=== PATIENT | male | born 1990 | race Caucasian/White ===

== ENCOUNTER 2019-11-19 05:04 | Emergency (ER) | payer SELFPAY ==
[2019-11-19] MEDS ORDERED: LORazepam 2 MG/ML SDV ONE (05:35)
[2019-11-19] MEDS ORDERED: LORazepam 2 MG/ML SDV IVPUSH ONE ×2 (05:39→06:00)
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
[2019-11-19] MEDS ORDERED: OLANZapine 10 MG Vial IM ONE (06:13)
[2019-11-19] MEDS ORDERED: Sodium Chloride 0.9% 1,000 ML IV ONE (07:29)
[2019-11-19] MEDS ORDERED: Sodium Chloride 0.9% 1,000 ML IV SCH (07:30)
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
== END 2019-11-19 12:20 | disposition home or self-care (01) ==
LOC: FB.ED 05:04
DX: F15.129 Other stimulant abuse with intoxication, unspecified (principal); F15.159 Other stimulant abuse with stimulant-induced psychotic disorder, unspecified
CPT/HCPCS: 36415; 80053; 80305-QW; 80307; 84443; 85025; 96361; 96374; 99285-25; J2060; J7030

== ENCOUNTER 2019-12-03 03:41 | Emergency (ER) | payer SELFPAY ==
--- NOTE | 2019-12-03 04:39 | EDM.PDOC ---
ED HPI GENERAL MEDICAL PROBLEM - General Chief Complaint: Drug or Alcohol Abuse Stated Complaint: WANTS BLOOD TESTED Time Seen by Provider: 12/03/19 04:34 Source of Information: Reports: Patient History Limitations: Reports: No Limitations - History of Present Illness INITIAL COMMENTS - FREE TEXT/NARRATIVE: Patient is a known IVDA, he injects Methamphetamine regularly. After injecting @ 1800 yesterday, his vision became blurred and felt lightheaded, this resolved after @2 hours. Patient is concerned that the Meth was laced with Fentanyl. He denies headache, chest pain or shortness of breath. Onset Date: 12/02/19 Onset Time: 18:00 Severity: Moderate Generalized Pain Score (Numeric/FACES): 7 - Related Data Allergies Allergy/AdvReac Type Severity Reaction Status Date / Time No Known Allergies Allergy Verified 12/03/19 03:48 Home Meds: Home Meds NK [No Known Home Meds] 04/19/14 [History] Past Medical History Respiratory History: Reports: Asthma Musculoskeletal History: Reports: Fracture Other Musculoskeletal History: hx fx L pelvis & L tib/fib Neurological History: Reports: Seizure Other Neuro History: meth induced seizures Psychiatric History: Reports: Addiction, Anxiety, Depression, Psych Hospitalization(s) Other Psychiatric History: IV meth abuse, has been in tx for meth abuse several times - Infectious Disease History Infectious Disease History: Reports: Chicken Pox - Past Surgical History Musculoskeletal Surgical History: Reports: Other (See Below) Other Musculoskeletal Surgeries/Procedures:: L tib/fib surgery, L pelvis surgery Social & Family History - Family History Family Medical History: Noncontributory - Tobacco Use Smoking Status *Q: Former Smoker Used Tobacco, but Quit: Yes Month/Year Tobacco Last Used: 2015 - Caffeine Use Caffeine Use: Reports: Coffee, Soda, Tea - Recreational Drug Use Recreational Drug Use: Yes Recreational Drug Type: Reports: Marijuana/Hashish, Methamphetamine Recreational Drug Use Frequency: Daily - Living Situation & Occupation Living situation: Reports: Single, Alone Occupation: Employed ED ROS GENERAL - Review of Systems Review Of Systems: Comprehensive ROS is negative, except as noted in HPI. ED EXAM, GENERAL - Physical Exam Exam: See Below Exam Limited By: No Limitations General Appearance: Alert, WD/WN, No Apparent Distress Eye Exam: Bilateral Eye: EOMI, PERRL (3 mm) Nose: Normal Inspection Throat/Mouth: No Airway Compromise Head: Atraumatic, Normocephalic Neck: Full Range of Motion Respiratory/Chest: No Respiratory Distress, Lungs Clear, Normal Breath Sounds Cardiovascular: Regular Rate, Rhythm, No Murmur Extremities: Normal Range of Motion Neurological: Alert, Oriented, Normal Cognition Psychiatric: Normal Affect, Normal Mood Skin Exam: Warm, Dry Course - Vital Signs Last Recorded V/S: Last Vital Signs Temp 36.5 C 12/03/19 03:44 Pulse 102 H 12/03/19 03:44 Resp 18 12/03/19 03:44 BP 145/92 H 12/03/19 03:44 Pulse Ox 98 12/03/19 03:44 - Orders/Labs/Meds Labs: Laboratory Tests 12/03/19 12/03/19 12/03/19 Range/Units 04:05 04:40 04:40 WBC 8.1 (4.5-12.0) X10-3/uL RBC 4.08 L (4.30-5.75) x10(6)uL Hgb 13.2 L (13.5-17.8) g/dL Hct 38.4 (30.0-51.3) % MCV 94.1 (80-96) fL MCH 32.3 (27.7-33.6) pg MCHC 34.3 (32.2-35.4) g/dL RDW 12.8 (11.5-15.5) % Plt Count 407 H (125-369) X10(3)uL MPV 7.1 L (7.4-10.4) fL Neut % (Auto) 75.9 (46-82) % Lymph % (Auto) 16.4 (13-37) % Gonzales % (Auto) 6.0 (4-12) % Eos % (Auto) 1 (1.0-5.0) % Baso % (Auto) 1 (0-2) % Neut # (Auto) 6.2 (1.6-8.3) # Lymph # (Auto) 1.3 (0.6-5.0) # Gonzales # (Auto) 0.5 (0.0-1.3) # Eos # (Auto) 0.1 (0.0-0.8) # Baso # (Auto) 0.0 (0.0-0.2) # Sodium 143 (135-145) mmol/L Potassium 4.0 (3.5-5.3) mmol/L Chloride 106 (100-110) mmol/L Carbon Dioxide 27 (21-32) mmol/L BUN 15 (7-18) mg/dL Creatinine 0.9 (0.70-1.30) mg/dL Est Cr Clr Drug Dosing 111.19 mL/min Estimated GFR (MDRD) > 60 (>60) BUN/Creatinine Ratio 16.7 (9-20) Glucose 96 (80-116) mg/dL Calcium 8.9 (8.6-10.2) mg/dL Total Bilirubin 0.4 (0.1-1.3) mg/dL AST 19 D (5-25) IU/L ALT 24 D (12-36) U/L Alkaline Phosphatase 84 (56-112) IU/L Total Protein 6.7 (6.0-8.0) g/dL Albumin 3.8 (3.5-5.2) g/dL Globulin 2.9 g/dL Albumin/Globulin Ratio 1.3 Urine Opiates Screen Negative (NEGATIVE) Ur Oxycodone Screen Negative (NEGATIVE) Ur Propoxyphene Screen Negative (NEGATIVE) Ur Barbituates Screen Negative (NEGATIVE) Ur Tricyclics Screen Negative (NEGATIVE) Ur Phencyclidine Scrn Negative (NEGATIVE) Ur Amphetamine Screen Positive H (NEGATIVE) Urine MDMA Screen Positive H (NEGATIVE) U Benzodiazepines Scrn Negative (NEGATIVE) U Cocaine Metab Screen Negative (NEGATIVE) U Marijuana (THC) Screen Positive H (NEGATIVE) Departure - Departure Time of Disposition: 05:05 Disposition: Home, Self-Care 01 Condition: Good Clinical Impression: Methamphetamine abuse - Discharge Information *PRESCRIPTION DRUG MONITORING PROGRAM REVIEWED*: No *COPY OF PRESCRIPTION DRUG MONITORING REPORT IN PATIENT BENNETT: Not Applicable Instructions: Stimulant Use Disorder-Amphetamines, Finding Treatment for Addiction Referrals: Omkar Sultana MD [Primary Care Provider] - Forms: ED Department Discharge Additional Instructions: Avoid using illicit drugs. Seek drug treatment program. Return to the ER with any concerns. Sepsis Event Note - Evaluation Sepsis Screening Result: No Definite Risk - Focused Exam Vital Signs: Vital Signs Temp Pulse Resp BP Pulse Ox 12/03/19 03:44 36.5 C 102 H 18 145/92 H 98 Date Exam was Performed: 12/03/19 Time Exam was Performed: 05:05
== END 2019-12-03 05:11 | disposition home or self-care (01) ==
LOC: FB.ED 03:41
DX: F15.10 Other stimulant abuse, uncomplicated (principal); Z87.891 Personal history of nicotine dependence
CPT/HCPCS: 36415; 80053; 80305-QW; 85025; 99282; 99283

== ENCOUNTER 2020-02-25 12:35 | Emergency (ER) | payer SELFPAY ==
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
[2020-02-25] MEDS ORDERED: Ibuprofen 600 MG Tab PO ONE (14:06)
== END 2020-02-25 15:00 | disposition home or self-care (01) ==
LOC: FB.ED 12:35
DX: S12.400A Unspecified displaced fracture of fifth cervical vertebra, initial encounter for closed fracture (principal); S12.500A Unspecified displaced fracture of sixth cervical vertebra, initial encounter for closed fracture; J45.909 Unspecified asthma, uncomplicated; W22.8XXA Striking against or struck by other objects, initial encounter
CPT/HCPCS: 72040; 72125; 99283; A9270

== ENCOUNTER 2023-03-26 11:43 | Emergency (ER) | payer OTHER, MEDICAID ==
[2023-03-26] MEDS ORDERED: LORazepam 2 MG/ML SDV IM ONE (11:55)
[2023-03-26 12:18] LABS: HEMATOCRIT 45.5 % (38.3-50.1); HEMOGLOBIN 15.8 g/dL (12.9-17.7); MEAN CORPUSCULAR HEMOGLOBIN 32.7 pg (27.0-33.3); MEAN CORPUSCULAR HGB CONC 34.6 g/dL (28.7-35.3); MEAN CORPUSCULAR VOLUME 94.5 fL (80.8-98.7); RED BLOOD CELL COUNT 4.82 x10(6)uL (3.90-5.90); RED CELL DISTRIBUTION WIDTH 13.4 % (12.4-15.0)
[2023-03-26 12:26] LABS: BLOOD UREA NITROGEN,BUN 18 mg/dL (7-18); CALCIUM 9.7 mg/dL (8.6-10.2); CARBON DIOXIDE,CO2 27 mmol/L (21-32); CHLORIDE,CL 101 mmol/L (100-110); ESTIMATED GFR 101 mL/min (>60); GLUCOSE RANDOM 102 mg/dL (80-116); SODIUM,NA 136 mmol/L (135-145)
[2023-03-26 12:32] LABS: A/G RATIO 1.2; ALANINE AMINOTRANSFERASE,ALT 50 U/L (12-36); ALBUMIN 4.2 g/dL (3.5-5.2); ALKALINE PHOSPHATASE 107 IU/L (56-112); ASPARTATE AMNIOTRANSFERASE,AST 71 IU/L (5-25); BILIRUBIN TOTAL 1.1 mg/dL (0.1-1.3); PROTEIN TOTAL,TP 7.7 g/dL (6.0-8.0)
== END 2023-03-26 13:00 ==
LOC: FB.ED 11:43
DX: F15.10 Other stimulant abuse, uncomplicated (principal); J45.909 Unspecified asthma, uncomplicated
CPT/HCPCS: 36415; 80053; 80307; 85027; 96372; 99283; J2060